=== PATIENT | male | born 1995 | race Caucasian/White ===

== ENCOUNTER 2024-09-12 13:34 | Emergency (ER) | payer OTHER, SELFPAY ==
--- OUTSIDE RECORDS SUMMARY | 2024-09-12 13:37 | XMS_ITS | Clinical Summary ---
Author Organization [facility] Address [place], [place] [address] Care Team Providers Care Watcher [employer] Name Role Phone Luke Nayak MD Primary Care Provider Irene Mayer RN Unavailable [phone] Allergies No known active allergies Medications blood-glucose meterIndications: Diabetes mellitus type 2, uncontrolled, without complications Dispense meter, test strips, lancets covered by pt ins. E11.9 NIDDM type II - Test 2 times/day. Reason: High A1C 1 Device 03/24/20 19 Active blood sugar diagnostic (BLOOD GLUCOSE TEST) stripIndications: Diabetes mellitus type 2, uncontrolled, without complications As directed. Test 2 times per day. 200 Strip 3 03/24/20 19 Active metFORMIN (GLUCOPHAGE) 1,000 mg tabletIndications :Controlled type 2 diabetes mellitus without complication, without long-term current use of insulin (HC) Take 1 Tablet (1,000 mg) by mouth two times daily with meals. 180 Tablet 1 06/16/20 24 Active tirzepatide (Mounjaro) 7.5 mg/0.5 mL penIndications:Un controlled type 2 diabetes mellitus with hypoglycemia without coma (HC) Inject 7.5 mg subcutaneous once weekly. 2 mL 06/16/20 24 Active pen tirzepatide (Mounjaro) 10 mg/0.5 mL penIndications:Un controlled type 2 diabetes mellitus with hypoglycemia without coma (HC) Inject 10 mg subcutaneous once weekly. 2 mL 06/16/20 24 Active tirzepatide (Mounjaro) 12.5 mg/0.5 mL penIndications:Un controlled type 2 diabetes mellitus with hypoglycemia without coma (HC) Inject 12.5 mg subcutaneous once weekly. 2 mL 06/16/20 24 Active tirzepatide (Mounjaro) 15 mg/0.5 mL penIndications:Un controlled type 2 diabetes mellitus with hypoglycemia without coma (HC) Inject 15 mg subcutaneous once weekly. 2 mL 06/16/20 24 Active ezetimibe (ZETIA) 10 mg tabletIndications :Hyperlipidemia, unspecified hyperlipidemia type Take 1 Tablet (10 mg) by mouth once daily. 90 Tablet 3 06/17/20 24 Active pen needle (BD Ultra-Fine Micro Pen Needle) 32 gauge x 1/4 (disposable insulin pen needle)Indication s:Uncontrolled type 2 diabetes mellitus with hypoglycemia without coma (HC) Remove the 2 covers on the pen needle before administering medication dose. 100 Each 5 06/27/20 24 Active omeprazole 20 mg tabletIndications :Chronic GERD Take 1 Tablet (20 mg) by mouth once daily before a meal. 90 Tablet 1 07/11/20 24 Active tirzepatide (Mounjaro) 5 mg/0.5 mL penIndications:Un controlled type 2 diabetes mellitus with hypoglycemia without coma (HC) Inject 5 mg subcutaneous once weekly. 2 mL 06/16/20 24 024 Discontin ued(*Medi cation adjustmen t) Active Problems Problem Noted Date Diagnosed Date Elevated liver enzymes 07/11/2024 Hyperlipidemia 01/18/2021 Controlled type 2 diabetes m ellitus without complication, without long-term current use of insulin 12/26/2019 Anxiety state, unspecified 06/06/2013 Obesity, unspecified 05/01/2008 Resolved Problems Problem Noted Date Diagnosed Date Resolved Date Type 2 diabetes mellitus wit h hyperglycemia, without long-term current use of insulin 02/02/2022 02/02/2022 Diabetes mellitus type 2, un controlled, without complications 03/24/2019 12/26/2019 Hypertriglyceridemia 03/24/2019 021 Insulin resistance 04/29/2010 9 Overview (04/29/2010): elevated insulin level Encounters Date Type Department Care Team Description 09/10/2024 Travel 08/15/2024 1:15 PM [employer]ORTING [employer] SALES ASSOCIATE Office Visit [facility] [address] [place] [address] Luke Nayak MD Follow Up 08/14/2024 3:00 PM [employer]ING [employer] SALES ASSOCIATE Patient Outreach [address] [address] Irene Mayer phys ther (Mounjaro/diet follow-up) 08/14/2024 Travel 08/10/2024 Travel 07/28/2024 Orders Only [facility] Scanner 1 scan: (1-Ord) [facility], DIABETES EYE EXAM CONSULT FORM, 07/28/2024 07/11/2024 2:55 PM CDT Office Visit [facility] [address] [place] [address] Luke Nayak MD Follow Up 07/10/2024 3:00 PM CDT Patient Outreach [address] [address] Irene Mayer RN Diabetes (Assessment/medicati on management) 07/10/2024 Travel 07/06/2024 Travel 06/27/2024 2:55 PM CDT Office Visit [facility] [address] [place] [address] Luke Nayak MD Diabetes (Discuss insulin use- and what blood sugars are too low with insulin. ); Medication Management (Ezetimibe or Mounjaro - was giving an upset stomach - but has gotten better ) 06/26/2024 Travel 06/17/2024 Telephone [facility] [address] [place] [address] Luke Nayak MD Results 06/16/2024 2:55 PM CDT Office Visit [facility] [address] [place] [address] Luke Nayak MD Diabetes (6 month follow up) 06/16/2024 Travel from Last 3 Months Immunizations Name Administration Dates Next Due AMB Influenza, IIV3 (Age >=3 years)(Flu Clinic Only) 08/30/2009 COVID-19 VACCINE SPIKEVAX (M ODERNA 50MCG/0.5ML) 12YO+ PFS 06/27/2024,11/30/2023 COVID-19 vaccine (Fast Orientation-Bio NTech 30mcg/0.3mL) 12YO+ BIVALENT PF, MDV 08/02/2022 COVID-19 vaccine (Pfizer-Bio NTech 30mcg/0.3mL) 12YO+ PILI-SUCROSE PF, MDV 11/24/2021 COVID-19 vaccine (Pfizer-Bio NTech 30mcg/0.3mL) PF, MDV 12/31/2020,12/11/2020 DTaP 10/07/2000,05/20/1998 DTaP-HIB (TriHIBIT) 01/26/1997,1996,1996 HIB HbOC (HibTITER) 05/20/1998 HPV 9 (Gardasil 9) 01/18/2021 Hepatitis A (Peds) 03/22/2000,11/30/1998 Hepatitis B (Peds) 01/26/1997,1996, 996 Human Papilloma Virus Vaccine 05/02/2013, 012 INFLUENZA, IIV3 PF (AGE >= 6 MO) 06/27/2024 Inactivated Polio Vaccine 10/07/2000,,1996,09/30 Influenza, IIV3 (Age 6-35 mos) 08/30/2009 Influenza, IIV3 (Age >=3 years) 10/07/2000 Influenza, IIV4 08/02/2022,06/25/2019 MMR 10/07/2000,08/18/1997 Meningococcal Vaccine (Menactra) 05/01/2008 Pneumococcal Conj 20-valent (Prevnar 20) 11/30/2023 Pneumococcal Poly,23-Valent (Pneumovax) 04/07/2019 Pneumococcal conj 7-Valent (Prevnar 7) 2 Tdap 03/19/2019,05/01/2008 Varicella Vaccine 05/01/2008,08/18/1997 Family History Medical History Relation Name Comments Good Health Father Other Mother of covid 2 020. Diabetes Paternal Aunt Cancer-colon No Family History Cancer-prostate No Family History Heart attack No Family History Relation Name Status Comments Father Mother Paternal Aunt Social History Tobacco Use Types Packs/Day Years Used Date Smoking Tobacco: Never Smokeless Tobacco: Never Tobacco Cessation:Counseling Given: No Alcohol Use Standard Drinks/Week Comments No 0 (1 standard drink = 0.6 oz pur e alcohol) [facility] Utilities Answer Date Recorded Do you have trouble paying f or utilities (for example, heat, electricity, water, phone)? No 11/30/2023 PHQ-2 Answer Date Recorded PHQ-2 TOTAL SCORE 1 11/30/2023 Social Connections Answer Date Recorded Do you often feel lonely or isolated from those around you? 0 11/30/2023 Financial Resource Strain Answer Date R ecorded Difficulty of Paying Living Expenses 2 11/30/2023 Difficulty of Paying Living Expenses 1 11/30/2023 Food Insecurity Answer Date Recorded Do you worry your food will run out before you are able to buy more? 2 11/30/2023 Transportation Needs Answer Date Record ed Does lack of transportation keep you from medica l appointments? 1 11/30/2023 Does lack of transportation keep you from work, meetings or getting things that you need? 1 11/30/2023 Housing Stability Answer Date Recorded What is your housing situation today? 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 Gender Identity Not on file Sexual Orientation Not on file Obstetrics History Last Filed Vital Signs Vital Sign Reading Time Taken Comments Blood Pressure 132/75 08/15/2024 1:21 PM SPORTING [employer] SALES ASSOCIATE Pulse 91 08/15/2024 1:08 PM SPORTING [employer] SALES ASSOCIATE Temperature 37 C (98.6 F) 03/09/2021 10:38 AM CDT Respiratory Rate - - Oxygen Saturation 98% 08/15/2024 1:08 PM SPORTING [employer] SALES ASSOCIATE Inhaled Oxygen Concentration - - Weight 132.5 kg (292 lb 3.2 oz) 08/15/2024 1:08 PM SPORTING GOODS SALES ASSOCIATE Height 168.4 cm (5' 6.3) 11/30/2023 2:57 PM CDT Body Mass Index 46.74 11/30/2023 2:57 PM CDT Plan of Treatment Upcoming Encounters Date Type Department Care Team (Late st Contact Info) Description 09/15/2024 2:45 PM SPORTING [employer] SALES ASSOCIATE Orders Only [facility] [place] [address] Lab, [place] 09/19/2024 8:50 AM SPORTING [employer] SALES ASSOCIATE Office Visit [facility] [address] [facility] [address] Luke Nayak MD [address] [place] [address] Health Maintenance Due Date Last Done Comments BMI (ht and wt on same day) for age 18+ 11/29/2024 11/30/2023, 01/30/2023, 08/02/2022, Additional history exists Depression screening for age 12+ 11/30/2024 12/01/2023, 12/01/2023, 11/30/2023, Additional history exists Tetanus booster 03/19/2029 03/19/2019, 05/01/2008 Hepatitis B series for Diabetes Completed 01/26/1997, 1996, 1996 Tdap Completed 03/19/2019, 05/01/2008 HIV for age 15-65 Completed 08/02/2022 Pneumococcal series for age 6-49 Completed 11/30/2023, 04/07/2019, 04/30/2002 COVID-19 vaccine series Completed 06/27/20 24, 11/30/2023, 08/02/2022, Additional history exists Hepatitis C screening for ag e 18-79 Completed 06/27/2024, 05/05/2022 Influenza for age 9-49 Completed , 08/02/2022, 06/25/2019, Additional history exists Procedures Procedure Name Priority Date/Time Associated Diagnosis Comments SCAN-EYE EXAM 07/28/2024 12:00 AM SP[employer]ING [employer] SALES ASSOCIATE AMB CONSULT TO GASTROENTEROLOGY Routine 07/07/2024 7:53 AM CDT Transaminitis ANTI-MITOCHONDRIAL DELMAR Routine 4:05 PM CDT Transaminitis ANTI-SMOOTH MUSCLE DELMAR Routine 4:05 PM CDT Transaminitis CBC WITH AUTO DIFFERENTIAL Routine 06/27/2024 4:05 PM CDT Transaminitis ANTINUCLEAR ANTIBODY BY IFA Routine 06/27/2024 4:05 PM CDT Transaminitis CERULOPLASMIN Routine 06/27/2024 4:05 PM CDT Transaminitis ANTI HCV Routine 06/27/2024 4:05 PM CDT Transaminitis HBSAG (HBS) Routine 06/27/2024 4:05 PM CDT Transaminitis ANTI HBS QUANT AHS Routine 06/27/2024 4: 05 PM CDT Transaminitis HEMOGLOBIN A1C MONITORING (POCT) Routine 06/16/2024 3:26 PM CDT Controlled type 2 diabetes mellitus without complication, without long-term current use of insulin (HC) LIPID PANEL W REFLEX MEASURED LDL Routine 06/16/2024 3:25 PM CDT Controlled type 2 diabetes mellitus without complication, without long-term current use of insulin (HC) HEPATIC FUNCTION PANEL Routine 3:25 PM CDT Elevated liver enzymes ANTI HIV 1/2 Routine 08/02/2022 3:31 PM SP[employer]ING [employer] SALES ASSOCIATE Screening for HIV (human immunodeficiency virus) from Last 3 Months or Most Recently Relevant to Health Maintenance Results * SCAN-EYE EXAM (07/28/2024 12:00 AM SPORTING [employer] SALES ASSOCIATE) us Scanner OTHER Final Result * ANTINUCLEAR ANTIBODY BY IFA (06/27/2024 4:05 PM CDT) ANNA MARIE SCREEN, IFA NEGATIVE NEGATIVE Ques t Ana Cristina- Remy Martin Comment: ANNA MARIE IFA is a first line screen for detecting the presence of up to approximately 150 autoantibodies in various autoimmune diseases. A negative ANNA MARIE IFA result suggests an ANNA MARIE-associated autoimmune disease is not present at this time, but is not definitive. If there is high clinical suspicion for Sjogren's syndrome, testing for anti-SS-A/Ro antibody should be considered. Anti-Saima-1 antibody should be considered for clinically suspected inflammatory myopathies. AC-0: Negative International Consensus on ANNA MARIE Patterns (https://doi.org/10.1515/tvpd-0834-3726) For additional information, please refer to http://WorldHeart.Coolio/faq/RJK591 (This link is being provided for informational/ educational purposes only.) Blood BLOOD SPECIMEN / Unknown 06/27/2024 4:05 PM CDT 06/27/2024 4:06 PM CDT Narrative [facility] - 06/28/2024 4:06 PM CDT FASTING:NO FASTING: NO Luke Nayak MD CHEMISTRY Final Result Performing Organization Address [facility] de Phone Number Financeit [facility] [address] [facility] [place] [address], [facility] [address] [facility] [place] [address] * HBSAG (06/27/2024 4:05 PM CDT) HEPATITIS B SURFACE ANTIGEN NON-REACTI VE NON-REACTI VE [facility] Comment: For additional information, please refer to http://WorldHeart.Voölks/faq/VDT819 (This link is being provided for informational/ educational purposes only.) Blood BLOOD SPECIMEN / Unknown 06/27/2024 4:05 PM CDT 06/27/2024 4:06 PM CDT Narrative [facility] - 06/28/2024 11:52 AM CDT FASTING:NO FASTING: NO Luke Nayak MD SEND OUTS Final Result Performing Organization Address [facility] Co de Phone Number Financeit [facility] [address] [place] [address], [place] [phone] [facility] [address] [facility] [place] [address] * ANTI HCV (06/27/2024 4:05 PM CDT) HEPATITIS C ANTIBODY NON-REACTI VE NON-REACT [place] [facility]Pradeep Vanne Comment: HCV antibody was non-reactive. There is no laboratory evidence of HCV infection. In most cases, no further action is required. However, if recent HCV exposure is suspected, a test for HCV RNA (test code 66129) is suggested. For additional information please refer to http://WorldHeart.Voölks/faq/MYD95i0 (This link is being provided for informational/ educational purposes only.) Blood BLOOD SPECIMEN / Unknown 06/27/2024 4:05 PM CDT 06/27/2024 4:06 PM CDT Narrative [facility] - 06/28/2024 11:52 AM CDT FASTING:NO FASTING: NO Luke Nayak MD SEND OUTS Final Result [facility] [address] [place] [address], [facility] [address] [place] [address] * (ABNORMAL) ANTI HBS QUANT AHS (06/27/2024 4:05 PM CDT) Pathologist [facility] HEPATITIS B SURFACE AB IMMUNITY, QN <5(L) > OR = 10 mIU/mL [facility]Nighat [facility]ne Comment: Patient does not have immunity to hepatitis B virus. For additional information, please refer to http://WorldHeart.Voölks/faq/VSN101 (This link is being provided for informational/ educational purposes only). Blood BLOOD SPECIMEN / Unknown 06/27/2024 4:05 PM CDT 06/27/2024 4:06 PM CDT Narrative [facility] - 06/28/2024 11:01 AM CDT FASTING:NO FASTING: NO Luke Nayak MD SEND OUTS Final Result [facility] [address] [place] [address], [facility] [address] [place] [address] * ANTI-SMOOTH MUSCLE DELMAR (06/27/2024 4:05 PM CDT) ACTIN (SMOOTH MUSCLE) ANTIBODY (IGG) <20 U [facility], Comment: Reference Range: <20 NEGATIVE > OR = 20 POSITIVE Antibodies recognizing actin are the main component of smooth muscle antibodies associated with autoimmune liver disease. Actin antibodies are found in approximately 75% of patients with autoimmune hepatitis (AIH) type 1, approximately 65% of patients with autoimmune cholangitis, approximately 30% of patients with primary biliary cirrhosis, and approximately 2% of healthy people. High values are closely correlated with AIH type 1. Blood BLOOD SPECIMEN / Unknown 06/27/2024 4:05 PM CDT 06/27/2024 4:06 PM CDT Narrative [facility] - 07/03/2024 1:08 AM CDT FASTING:NO FASTING: NO Luke Nayak MD SEND OUTS Final Result Performing Organization Address [facility]/ZIP Co de Phone Number [facility] [address] [place] [address], [facility], [address] [place] [address] * ANTI-MITOCHONDRIAL DELMAR (06/27/2024 4:05 PM CDT) MITOCHONDRIAL AB SCREEN NEGATIVE NEGATIVE [facility] Blood BLOOD SPECIMEN / Unknown 06/27/2024 4:05 PM CDT 06/27/2024 4:06 PM CDT Narrative [facility] - 07/01/2024 9:45 AM CDT FASTING:NO FASTING: NO us Luke Nayak MD SEND OUTS Final Result [facility] [address] [place] [address], [facility] [address] [place] [address] * (ABNORMAL) CBC AND DIFFERENTIAL (06/27/2024 4:05 PM CDT) Pathologist [facility] WHITE BLOOD CELL COUNT 10.9(H) 3.8 - 10.8 Thousand/u L [facility] RED BLOOD CELL COUNT 5.93(H) 4.20 - 5.80 Million/uL [facility] HEMOGLOBIN 16.2 13.2 - 17.1 g/dL [facility] HEMATOCRIT 50.6(H) 38.5 - 50.0 % [facility] MCV 85.3 80.0 - 100.0 fL [facility] MCH 27.3 27.0 - 33.0 pg [facility] MCHC 32.0 32.0 - 36.0 g/dL [facility] Comment: For adults, a slight decrease in the calculated MCHC value (in the range of 30 to 32 g/dL) is most likely not clinically significant; however, it should be interpreted with caution in correlation with other red cell parameters and the patient's clinical condition. RDW 12.5 11.0 - 15.0 % [facility] PLATELET COUNT 344 140 - 400 Thousand/u L [facility] MPV 10.5 7.5 - 12.5 fL [facility] ABSOLUTE NEUTROPHILS 4,643 1,500 - 7,800 cells/uL [facility] ABSOLUTE LYMPHOCYTES 4,752(H) 850 - 3,900 cells/uL [facility] ABSOLUTE MONOCYTES 752 200 - 950 cells/uL [facility] ABSOLUTE EOSINOPHILS 643(H) 15 - 500 cells/uL [facility] ABSOLUTE BASOPHILS 109 0 - 200 cells/uL [facility] NEUTROPHILS 42.6 % [facility] LYMPHOCYTES 43.6 % [facility] MONOCYTES 6.9 % [facility] EOSINOPHILS 5.9 % [facility] BASOPHILS 1.0 % [facility] Blood BLOOD SPECIMEN / Unknown 06/27/2024 4:05 PM CDT 06/27/2024 4:06 PM CDT Narrative [facility] - 06/28/2024 3:25 AM CDT FASTING:NO FASTING: NO us Luke Nayak MD HEMATOLOGY Final Result [facility] [address] [place] [address], [place] [phone] [facility] [address] [place] [address] * CERULOPLASMIN (06/27/2024 4:05 PM CDT) CERULOPLASMIN 29 14 - 30 mg/dL [facility] Blood BLOOD SPECIMEN / Unknown 06/27/2024 4:05 PM CDT 06/27/2024 4:06 PM CDT Narrative [facility] - 06/30/2024 3:51 PM CDT FASTING:NO FASTING: NO us Luke Nayak MD SEND OUTS Final Result [facility] [address] [place] [address], [place] [phone] [facility] [address] [place] [address] * (ABNORMAL) HEMOGLOBIN A1C MONITORING (POCT) (06/16/2024 3:26 PM CDT) POC HEMOGLOBIN A1C 11.5(H) <6.0 % OF TOTAL HGB [facility] Comment: Any point of care results exhibiting inconsistency with the patient's clinical status should be repeated using a different testing method. Blood BLOOD SPECIMEN / Unknown 06/16/2024 3:26 PM CDT 06/16/2024 3:27 PM CDT Luke Nayak MD CHEMISTRY Final Result [facility] [address] [place] [address], [facility] [address] [place] [address] * (ABNORMAL) LIPID PANEL W REFLEX MEASURED LDL (06/16/2024 3:25 PM CDT) CHOLESTEROL, TOTAL 278(H) <200 mg/dL [facility] HDL CHOLESTEROL 36(L) > OR = 40 mg/dL [facility] TRIGLYCERIDES 280(H) <150 mg/dL [facility] Comment: If a non-fasting specimen was collected, consider repeat triglyceride testing on a fasting specimen if clinically indicated. Celine et al. J. of Clin. Lipidol. 2015;9:129-169. LDL-CHOLESTEROL 192(H) mg/dL (calc) [facility] Comment: LDL-C levels > or = 190 mg/dL may indicate familial hypercholesterolemia (FH). Clinical assessment and measurement of blood lipid levels should be considered for all first degree relatives of patients with an FH diagnosis. LDL Cholesterol (LDL-C) levels > or = 300 mg/dL may indicate homozygous familial hypercholesterolemia (HoFH). Untreated, these extremely high LDL-C levels can result in premature CV events and mortality. Patients should be identified early and provided appropriate interventions to reduce the cumulative LDL-C burden from . For questions about testing for familial hypercholesterolemia, please call sendwithus Client Services at [email or web address].GENE.INFO. Celine Nino, et al. J National Lipid Association Recommendations for Patient-Centered Management of Dyslipidemia: Part 1 Journal of Clinical Lipidology 2015;9(2), 129-169. Landon Abbasi et al. (2014). Homozygous familial hypercholesterolaemia: new insights and guidance for clinicians to improve detection and clinical management. Heart Journal, 35(32), 9823-1548. Reference range: <100 Desirable range <100 mg/dL for primary prevention; <70 mg/dL for patients with CHD or diabetic patients with > or = 2 CHD risk factors. LDL-C is now calculated using the Maki calculation, which is a validated novel method providing better accuracy than the Friedewald equation in the estimation of LDL-C. Byron SS et al. JULIUS. 2013;310(19): 5526-4767 (http://education.Coolio/faq/TJO669) CHOL/HDLC RATIO 7.7(H) <5.0 (calc) [facility] NON HDL CHOLESTEROL 242(H) <130 mg/dL (calc) [facility] Comment: Non-HDL level > or = 220 is very high and may indicate genetic familial hypercholesterolemia (FH). Clinical assessment and measurement of blood lipid levels should be considered for all first-degree relatives of patients with an FH diagnosis. For patients with diabetes plus 1 major ASCVD risk factor, treating to a non-HDL-C goal of <100 mg/dL (LDL-C of <70 mg/dL) is considered a therapeutic option. Blood BLOOD SPECIMEN / Unknown 06/16/2024 3:25 PM CDT 06/16/2024 3:26 PM CDT us Luke Nayak MD CHEMISTRY Final Result [facility] [address] [place] [address], [facility] [address] [place] [address] * (ABNORMAL) HEPATIC FUNCTION PANEL (06/16/2024 3:25 PM CDT) PROTEIN, TOTAL 7.2 6.1 - 8.1 g/dL [facility] ALBUMIN 4.2 3.6 - 5.1 g/dL [facility] GLOBULIN 3.0 1.9 - 3.7 g/dL (calc) [facility] ALBUMIN/GLOBULIN RATIO 1.4 1.0 - 2.5 (calc) [facility] BILIRUBIN, TOTAL 0.4 0.2 - 1.2 mg/dL [facility] BILIRUBIN, DIRECT 0.1 < OR = 0.2 mg/dL [facility] BILIRUBIN, INDIRECT 0.3 0.2 - 1.2 mg/dL (calc) [facility] ALKALINE PHOSPHATASE 99 36 - 130 U/L [facility] AST 164(H) 10 - 40 U/L [facility] ALT 316(H) 9 - 46 U/L [facility] Blood BLOOD SPECIMEN / Unknown 06/16/2024 3:25 PM CDT 06/16/2024 3:26 PM CDT us Luke Nayak MD CHEMISTRY Final Result Performing Organization Address City/[facility]/ZIP Co de Phone Number [facility] [address] [place] [address], [place] [phone] [facility] [address] * ANTI HIV 1/2 (08/02/2022 3:31 PM [employer]ING [employer] SALES ASSOCIATE) [facility] HIV-1/HIV-2 ANTIBODY Non-Reacti ve Non-Reacti ve 08/05/2022 1:35 PM [employer]ING [employer] SALES ASSOCIATE [facility] Comment:HIV-1 p24 and HIV-1/ HIV-2 Ab not detected. Blood BLOOD SPECIMEN / Unknown Venipuncture / Unknown 08/02/2022 3:31 PM SP[employer]ING [employer] SALES ASSOCIATE 08/02/2022 3:32 PM [employer]ING [employer] SALES ASSOCIATE us Luke Nayak MD SEND OUTS Final Result [facility] [address] [place] [address], [place] from Last 3 Months or Most Recently Relevant to Health Maintenance Insurance [facility] Care Teams Watcher [employer]s Relationship Specialty Start Date End Date Luke Nayak MD [address] [place] [address] PCP - General Family Practice 12/24/19 Irene Mayer, RN [address] [place] [address] Crystal Grower 08/14/24
[2024-09-12 13:50] VITALS: BP 137/90; PULSE 105; RESP 16; TEMP 36.8; O2SAT 97; BMI 48.1
--- NOTE | 2024-09-12 16:12 | ED.GENADULT ---
HPI - General Adult General Date Seen: 09/12/24 Chief complaint: Abdominal Pain Stated complaint: L side abdominal pain Time Seen by Provider: 09/12/24 15:53 History of Present Illness HPI narrative: Patient is a 29-year-old male with history of diabetes, has been on Sunday RO for the past 4 months he says. For the past day he has noted intermittent warm sensation and his left flank and side. He says it does not feel painful, it seems to come on after eating and it feels kind of warm on the inside and the outside to touch. He has not had problems with nausea, vomiting, diarrhea. No black or bloody stools. Normal appetite. Pain is not exertional nor positional. No pleuritic pain, no shortness of breath. No fevers, no cough or respiratory symptoms. No rash that he has noticed. He does not smoke or drink. Related Data Home Medications ?Medication ?Instructions ?Recorded ?Confirmed ezetimibe 10 mg tablet 10 mg PO DAILY 09/12/24 09/12/24 metformin 1,000 mg tablet 1,000 mg PO BID 09/12/24 09/12/24 tirzepatide 10 mg/0.5 mL 10 mg subcut 09/12/24 subcutaneous pen injector (Mounjaro) Previous Rx's ?Medication ?Instructions ?Recorded omeprazole 40 mg capsule,delayed 40 mg PO DAILY #14 caps 09/12/24 release Allergies Allergy/AdvReac Type Severity Reaction Status Date / Time No Known Drug Allergies Allergy Verified 09/12/24 13:55 Review of Systems Status of ROS: Reports: 10 or more systems reviewed and unremarkable except as noted in History and below [facility] Social History Smoking Status: Never smoker Do you use any of these nicotine containing products: None How often do you have a drink containing alcohol: never AUDIT-C Alcohol total score: 0 Non-prescribed substance use: denies use Exam Narrative: Exam Narrative: Vital signs reviewed In general, alert, nontoxic young man. He is overweight. Head: Normocephalic, atraumatic. Eyes: Sclera clear. Pupils equal and reactive. ENT: Mucous membranes moist. Neck: Supple without adenopathy. Heart: Regular rate and rhythm without murmur. Lungs: Clear. No increased work of breathing, crackles or wheezes. No CVA tenderness. Abdomen: Soft, nontender to palpation. Extremities: Well perfused, pulses intact. No significant edema. Neurologic: Alert, conversant. Speech fluent, face symmetric. Moves all extremities equally. Skin: Warm, dry well perfused. No rash Affect: Normal. Const: Vital Signs, click to edit/add: Vital Signs - 24 hr 09/12/24 13:50 09/12/24 16:27 Temperature 98.2 F 97.5 F L Pulse Rate [Right Pulse Oximeter] 105 H 94 Respiratory Rate 16 18 Blood Pressure [Ri ght Upper Arm] 137/90 H 129/90 H Pulse Oximetry 97 97 Oxygen Delivery Me thod Room Air Room Air Documenting provider has reviewed patient's vital signs: yes Course Course ED Course: Patient presents with somewhat atypical symptoms in his left side. Diagnostic considerations would include angina or a acute coronary syndrome, pneumonia, pancreatitis, diverticulitis, gastritis peptic ulcer disease, shingles, among others. My suspicion for PE is low given absence of chest pain, shortness of breath. He cannot be ruled out by PERC criteria based on tachycardia when he came in, but I do wonder if this might have been based on vital signs taken right after he walked in from outside. Will repeat that and I think if pulses normalized I would not pursue that diagnosis further. I have ordered labs to evaluate for other diagnoses as well as an EKG. This by my review shows a sinus rhythm, ventricular rate of 99. No acute ST segment changes. He does have a rightward axis. Unremarkable T-waves. Labs are generally reassuring. He has a mildly elevated white blood cell count of 13 which is fairly nonspecific in this setting. Platelets are normal, hemoglobin is normal. No left shift. Metabolic panel is normal, creatinine is 0.6, blood sugars well controlled at 95. LFTs are mildly elevated, AST of 54 an ALT of 118, discussed this with him he says he has been told he has fatty liver. I suspect that this is the cause for this but this can be followed with primary care. I do not think that this is related to his current symptoms. CRP is less than 0.6, lipase is 148. Point of care troponin was 0.01. Overall, symptoms are somewhat atypical, but I think it is reasonable to try am on a proton pump inhibitor. He has an appointment with his primary care provider in 1 week which I think would be good follow-up for him. Will see if he feels better on omeprazole. Also told him to keep an eye out for rash which could indicate shingles. Return any time for severe symptoms such as severe uncontrolled pain, vomiting, fevers, significant shortness of breath etcetera. Vital Signs Vital signs: Initial Vital Signs Temperature 98.2 F 09/12/24 13:50 Temperature Source Temporal Artery Scan 09/12/24 13:50 Pulse Rate 105 H 09/12/24 13:50 Pulse Rhythm Regular 09/12/24 13:50 Respiratory Rate 16 09/12/24 13:50 Blood Pressure 137/90 H 09/12/24 13:50 Blood Pressure Mean 105 09/12/24 13:50 Blood Pressure Position Sitting 09/12/24 13:50 Pulse Oximetry 97 09/12/24 13:50 Oxygen Delivery Method Room Air 09/12/24 13:50 Vital Signs Temperature 98.2 F 09/12/24 13:50 Pulse Rate 105 H 09/12/24 13:50 Respiratory Rate 16 09/12/24 13:50 Blood Pressure 137/90 H 09/12/24 13:50 Pulse Oximetry 97 09/12/24 13:50 Oxygen Delivery Method Room Air 09/12/24 13:50 Temperature 97.5 F L 09/12/24 16:27 Pulse Rate 94 09/12/24 16:27 Respiratory Rate 18 09/12/24 16:27 Blood Pressure 129/90 H 09/12/24 16:27 Pulse Oximetry 97 09/12/24 16:27 Oxygen Delivery Method Room Air 09/12/24 16:27 Medical Decision Making Lab Data Labs: Lab Results 09/12/24 09/12/24 09/12/24 Range/Units 16:02 16:29 16:29 WBC 13.05 H (4.50-11.00) K/uL RBC 5.75 (4.30-5.90) m/uL Hgb 16.0 (13.5-17.5) gm/dL Hct 48.1 (37.0-53.0) % MCV 84 (80-100) fL MCH 28 (26-34) pg MCHC 33 (32-36) gm/dL RDW Coeff of Carlos 12.5 (11.5-15.5) % Plt Count 322 (140-440) K/uL Neut % (Auto) 62.5 (42.0-72.0) % Lymph % (Auto) 27.9 (20-44) % Craig % (Auto) 6.4 (0.0-11.0) % Eos % (Auto) 2.5 (0.0-7.0) % Baso % (Auto) 0.6 (0.0-3.0) % Neut # (Auto) 8.20 H (1.7-7.0) K/uL Lymph # (Auto) 3.60 H (0.90-2.90) K/uL Craig # (Auto) 0.80 (0.00-0.90) K/UL Eos # (Auto) 0.30 (0.00-0.50) K/uL Baso # (Auto) 0.10 (0.00-0.30) K/uL Abs Immat Gran (auto) 0.00 (0.00-0.30) K/uL Imm/Tot Granulo (auto) 0.1 % Sodium 137 (135-149) mmol/L Potassium 3.8 (3.6-5.1) mmol/L Chloride 104 (96-114) mmol/L Carbon Dioxide 25 (20-32) mmol/L Anion Gap 8 (7-15) mEq/L BUN 14 (5-24) mg/dL Creatinine 0.6 (0.5-1.5) mg/dL Estimated Creat Clear 159.44 Estimated GFR 135 ml/min Glucose 95 (60-115) mg/dL Calcium 9.0 (8.4-10.6) mg/dL Total Bilirubin 0.4 0.5 (0.1-1.5) mg/dL Direct Bilirubin 0.2 (0.0-0.5) mg/dL AST (12-35) U/L ALT (4-50) U/L Alkaline Phosphatase (40-150) U/L C-Reactive Protein (0.5-1.0) mg/dL Total Protein (6.0-8.3) g/dL Albumin (3.3-5.0) g/dL Lipase (23-300) U/L POC Troponin I 0.01 (0.01-0.04) ng/ml 0109/12/24 09/12/24 Range/Units 16:29 16:29 16:29 WBC (4.50-11.00) K/uL RBC (4.30-5.90) m/uL Hgb (13.5-17.5) gm/dL Hct (37.0-53.0) % MCV (80-100) fL MCH (26-34) pg MCHC (32-36) gm/dL RDW Coeff of Carlos (11.5-15.5) % Plt Count (140-440) K/uL Neut % (Auto) (42.0-72.0) % Lymph % (Auto) (20-44) % Craig % (Auto) (0.0-11.0) % Eos % (Auto) (0.0-7.0) % Baso % (Auto) (0.0-3.0) % Neut # (Auto) (1.7-7.0) K/uL Lymph # (Auto) (0.90-2.90) K/uL Craig # (Auto) (0.00-0.90) K/UL Eos # (Auto) (0.00-0.50) K/uL Baso # (Auto) (0.00-0.30) K/uL Abs Immat Gran (auto) (0.00-0.30) K/uL Imm/Tot Granulo (auto) % Sodium (135-149) mmol/L Potassium (3.6-5.1) mmol/L Chloride (96-114) mmol/L Carbon Dioxide (20-32) mmol/L Anion Gap (7-15) mEq/L BUN (5-24) mg/dL Creatinine (0.5-1.5) mg/dL Estimated Creat Clear Estimated GFR ml/min Glucose (60-115) mg/dL Calcium (8.4-10.6) mg/dL Total Bilirubin (0.1-1.5) mg/dL Direct Bilirubin 0.3 (0.0-0.5) mg/dL AST 52 H 54 H (12-35) U/L ALT 118 H 118 H (4-50) U/L Alkaline Phosphatase 94 (40-150) U/L C-Reactive Protein (0.5-1.0) mg/dL Total Protein (6.0-8.3) g/dL Albumin (3.3-5.0) g/dL Lipase (23-300) U/L POC Troponin I (0.01-0.04) ng/ml 09/12/24 09/12/24 09/12/24 Range/Units 16:29 16:29 16:29 WBC (4.50-11.00) K/uL RBC (4.30-5.90) m/uL Hgb (13.5-17.5) gm/dL Hct (37.0-53.0) % MCV (80-100) fL MCH (26-34) pg MCHC (32-36) gm/dL RDW Coeff of Carlos (11.5-15.5) % Plt Count (140-440) K/uL Neut % (Auto) (42.0-72.0) % Lymph % (Auto) (20-44) % Craig % (Auto) (0.0-11.0) % Eos % (Auto) (0.0-7.0) % Baso % (Auto) (0.0-3.0) % Neut # (Auto) (1.7-7.0) K/uL Lymph # (Auto) (0.90-2.90) K/uL Craig # (Auto) (0.00-0.90) K/UL Eos # (Auto) (0.00-0.50) K/uL Baso # (Auto) (0.00-0.30) K/uL Abs Immat Gran (auto) (0.00-0.30) K/uL Imm/Tot Granulo (auto) % Sodium (135-149) mmol/L Potassium (3.6-5.1) mmol/L Chloride (96-114) mmol/L Carbon Dioxide (20-32) mmol/L Anion Gap (7-15) mEq/L BUN (5-24) mg/dL Creatinine (0.5-1.5) mg/dL Estimated Creat Clear Estimated GFR ml/min Glucose (60-115) mg/dL Calcium (8.4-10.6) mg/dL Total Bilirubin (0.1-1.5) mg/dL Direct Bilirubin (0.0-0.5) mg/dL AST (12-35) U/L ALT (4-50) U/L Alkaline Phosphatase 98 (40-150) U/L C-Reactive Protein 0.6 (0.5-1.0) mg/dL Total Protein 7.6 7.6 (6.0-8.3) g/dL Albumin 4.3 4.3 (3.3-5.0) g/dL Lipase 147 (23-300) U/L POC Troponin I (0.01-0.04) ng/ml 09/12/24 Range/Units 16:29 WBC (4.50-11.00) K/uL RBC (4.30-5.90) m/uL Hgb (13.5-17.5) gm/dL Hct (37.0-53.0) % MCV (80-100) fL MCH (26-34) pg MCHC (32-36) gm/dL RDW Coeff of Carlos (11.5-15.5) % Plt Count (140-440) K/uL Neut % (Auto) (42.0-72.0) % Lymph % (Auto) (20-44) % Craig % (Auto) (0.0-11.0) % Eos % (Auto) (0.0-7.0) % Baso % (Auto) (0.0-3.0) % Neut # (Auto) (1.7-7.0) K/uL Lymph # (Auto) (0.90-2.90) K/uL Craig # (Auto) (0.00-0.90) K/UL Eos # (Auto) (0.00-0.50) K/uL Baso # (Auto) (0.00-0.30) K/uL Abs Immat Gran (auto) (0.00-0.30) K/uL Imm/Tot Granulo (auto) % Sodium (135-149) mmol/L Potassium (3.6-5.1) mmol/L Chloride (96-114) mmol/L Carbon Dioxide (20-32) mmol/L Anion Gap (7-15) mEq/L BUN (5-24) mg/dL Creatinine (0.5-1.5) mg/dL Estimated Creat Clear Estimated GFR ml/min Glucose (60-115) mg/dL Calcium (8.4-10.6) mg/dL Total Bilirubin (0.1-1.5) mg/dL Direct Bilirubin (0.0-0.5) mg/dL AST (12-35) U/L ALT (4-50) U/L Alkaline Phosphatase (40-150) U/L C-Reactive Protein (0.5-1.0) mg/dL Total Protein (6.0-8.3) g/dL Albumin (3.3-5.0) g/dL Lipase 148 (23-300) U/L POC Troponin I (0.01-0.04) ng/ml Discharge Plan Discharge Clinical Impression: Left sided abdominal pain of unknown cause Patient Disposition: Home, Self-Care Condition: Stable Instructions: Abdominal Pain (ED) Additional Instructions: Your test today are reassuring. There is no evidence of problems with your heart, kidneys, pancreas. Your liver function tests are mildly elevated, this may be due to fatty liver, but can be followed through primary care. I do not think this is related to your symptoms today. If you develop a rash on your left side, this could indicate shingles and you should be seen again. For now, I would recommend that we try you on a 2 week course of omeprazole, a medication for stomach acid. You should follow-up in about a week with primary care for recheck of your symptoms. If at any time you have significant worsening, high fevers, difficulty breathing, severe pain, vomiting or other new symptoms, return to the ER for evaluation. Prescriptions: New omeprazole 40 mg capsule,delayed release(DR/EC) 40 mg PO DAILY Qty: 14 2RF No Action metformin 1,000 mg tablet 1,000 mg PO BID ezetimibe 10 mg tablet 10 mg PO DAILY Mounjaro 10 mg/0.5 mL pen injector 10 mg subcut Follow Up/Referrals: Luke Nayak MD [Primary Care Provider] - Stand Alone Forms: Silver [employer]ve Info Instructions
[2024-09-12 16:27] VITALS: BP 129/90; PULSE 94; RESP 18; TEMP 36.4; O2SAT 97
[2024-09-12 16:45] LABS: Basophils Percent Auto 0.6 % (0.0-3.0); Eosinophils Percent Auto 2.5 % (0.0-7.0); Hematocrit 48.1 % (37.0-53.0); Immature Granulocytes Pct Auto 0.1 %; Lymphocytes Percent Auto 27.9 % (20-44); Mean Corpuscular HGB Conc 33 gm/dL (32-36); Mean Corpuscular Hemoglobin 28 pg (26-34); Mean Corpuscular Volume 84 fL (80-100); Monocytes Percent Auto 6.4 % (0.0-11.0); Neutrophils Percent Auto 62.5 % (42.0-72.0); Platelet Count* 322 K/uL (140-440); RDW Coefficient of Variation % 12.5 % (11.5-15.5); Red Blood Count 5.75 m/uL (4.30-5.90); White Blood Count* 13.05 K/uL (4.50-11.00)
[2024-09-12 16:53] LABS: Albumin* 4.3 g/dL (3.3-5.0); Chloride* 104 mmol/L (96-114); Slide Review Reflex No
[2024-09-12 16:54] LABS: Potassium* 3.8 mmol/L (3.6-5.1); Sodium* 137 mmol/L (135-149)
[2024-09-12 16:56] LABS: Creatinine* 0.6 mg/dL (0.5-1.5); Est. Creatinine Clearance* 159.44; Estimated Glomerular Filt Rate 135 ml/min
[2024-09-12 16:57] LABS: Alanine Aminotransferase* 118 U/L (4-50); Alkaline Phosphatase* 94 U/L (40-150); Anion Gap 8 mEq/L (7-15); Aspartate Amino Transferase* 52 U/L (12-35); Bilirubin Direct* 0.2 mg/dL (0.0-0.5); Bilirubin Total* 0.4 mg/dL (0.1-1.5); Blood Urea Nitrogen* 14 mg/dL (5-24); Carbon Dioxide* 25 mmol/L (20-32); Glucose* 95 mg/dL (60-115); Lipase* 147 U/L (23-300); Total Protein* 7.6 g/dL (6.0-8.3)
[2024-09-12 17:00] LABS: C Reactive Protein* 0.6 mg/dL (0.5-1.0)
[2024-09-12 17:00] LABS: Troponin, Point-of-Care* 0.01 ng/ml (0.01-0.04)
[2024-09-12 17:20] LABS: Albumin* 4.3 g/dL (3.3-5.0)
[2024-09-12 17:22] LABS: Bilirubin Direct* 0.3 mg/dL (0.0-0.5); Bilirubin Total* 0.5 mg/dL (0.1-1.5); Total Protein* 7.6 g/dL (6.0-8.3)
[2024-09-12 17:23] LABS: Alanine Aminotransferase* 118 U/L (4-50); Alkaline Phosphatase* 98 U/L (40-150); Aspartate Amino Transferase* 54 U/L (12-35); Lipase* 148 U/L (23-300)
--- OUTSIDE RECORDS SUMMARY | 2024-09-12 18:46 | XMS_ITS | Clinical Summary ---
Author Organization [employer] Address [place], [place] [address] Care Team Providers Care Front End Wheel Loader Operator Name Role Phone Luke Nayak MD Primary Care Provider Irene Mayer RN Unavailable [phone] Allergies No known active allergies Medications blood-glucose [...] Team Description 09/10/2024 Travel 08/15/2024 1:15 PM SECTION HAND HELPER Office Visit [facility] [address] [place] [address] Luke Nayak MD Follow Up 08/14/2024 3:00 PM SECTION HAND HELPER Patient Outreach [address] [address] Irene Mayer rock breaker (Mounjaro/diet follow-up) 08/14/2024 Travel 08/10/2024 Travel 07/28/2024 Orders Only [facility] Scanner 1 scan: (1-Ord) [facility], DIABETES EYE EXAM CONSULT FORM, 07/28/2024 07/11/2024 2:55 PM CDT Office Visit [facility] [address] [place] [address] Luke Nayak MD Follow Up 07/10/2024 3:00 PM CDT Patient Outreach [address] [address] Irene Mayer RN Diabetes (Assessment/medicati on management) 07/10/2024 Travel 07/06/2024 Travel 06/27/2024 2:55 PM CDT Office Visit [facility] [address] [place] [address] Luke Nayak MD Diabetes (Discuss insulin use- and what blood sugars are too low with insulin. ); Medication Management (Ezetimibe or Mounjaro - was giving an upset stomach - but has gotten better ) 06/26/2024 Travel 06/17/2024 Telephone [facility] [address] [place] [address] Luke Nayak MD Results 06/16/2024 2:55 PM CDT Office Visit [facility] [address] [place] [address] Luke Nayak MD Diabetes (6 month follow up) 06/16/2024 Travel from Last 3 Months Immunizations Name Administration Dates Next Due AMB Influenza, IIV3 (Age >=3 years)(Flu Clinic Only) 08/30/2009 COVID-19 VACCINE SPIKEVAX (M ODERNA 50MCG/0.5ML) 12YO+ PFS 06/27/2024,11/30/2023 COVID-19 vaccine (Social Touch-Bio NTech 30mcg/0.3mL) 12YO+ BIVALENT PF, MDV 08/02/2022 [...] drink = 0.6 oz pur e alcohol) [facility] Utilities Answer Date Recorded Do you have [...] on file Legal Sex Male 7:14 AM SECTION HAND HELPER Gender Identity Not on file Sexual Orientation Not on file Obstetrics History Last Filed Vital Signs Vital Sign Reading Time Taken Comments Blood Pressure 132/75 08/15/2024 1:21 PM SECTION HAND HELPER Pulse 91 08/15/2024 1:08 PM SECTION HAND HELPER Temperature 37 C (98.6 F) 03/09/2021 10:38 AM CDT Respiratory Rate - - Oxygen Saturation 98% 08/15/2024 1:08 PM SECTION HAND HELPER Inhaled Oxygen Concentration - - Weight 132.5 kg (292 lb 3.2 oz) 08/15/2024 1:08 PM SECTION HAND HELPER Height 168.4 cm (5' 6.3) 11/30/2023 2:57 PM CDT Body Mass Index 46.74 11/30/2023 2:57 PM CDT Plan of Treatment Upcoming Encounters Date Type Department Care Team (Late st Contact Info) Description 09/15/2024 2:45 PM SECTION HAND HELPER Orders Only [facility] [place] [address] Lab, [place] 09/19/2024 8:50 AM SECTION HAND HELPER Office Visit [facility] [address] [facility] [address] Luke Nayak MD [address] [place] [address] Health Maintenance Due Date Last Done Comments [...] Diagnosis Comments SCAN-EYE EXAM 07/28/2024 12:00 AM SECTION HAND HELPER AMB CONSULT TO GASTROENTEROLOGY Routine 07/07/2024 7:53 [...] ANTI HIV 1/2 Routine 08/02/2022 3:31 PM SECTION HAND HELPER Screening for HIV (human immunodeficiency virus) from Last 3 Months or Most Recently Relevant to Health Maintenance Results * SCAN-EYE EXAM (07/28/2024 12:00 AM SECTION HAND HELPER) us Scanner OTHER Final Result * ANTINUCLEAR [...] Negative International Consensus on ANNA MARIE Patterns (https://doi.org/10.1515/pijf-6546-9604) For additional information, please refer to http://[employer]/faq/QRK191 (This link is being provided for informational/ educational purposes only.) Blood BLOOD SPECIMEN / Unknown 06/27/2024 4:05 PM CDT 06/27/2024 4:06 PM CDT Narrative [facility] - 06/28/2024 4:06 PM CDT FASTING:NO FASTING: NO Luke Nayak MD CHEMISTRY Final Result Performing Organization Address [facility] de Phone Number [facility] [address] [place] [address], [facility] [address] [facility] [place] [address] * HBSAG (06/27/2024 4:05 PM CDT) HEPATITIS B SURFACE ANTIGEN NON-REACTI VE NON-REACTI VE [facility] Comment: For additional information, please refer to http://[employer]/faq/NWV380 (This link is being provided for informational/ educational purposes only.) Blood BLOOD SPECIMEN / Unknown 06/27/2024 4:05 PM CDT 06/27/2024 4:06 PM CDT Narrative [facility] - 06/28/2024 11:52 AM CDT FASTING:NO FASTING: NO Luke Nayak MD SEND OUTS Final Result Performing Organization Address [facility] [[email or web address]] Co de Phone Number [facility] [address] [employer] [place] [address], [place] [phone] [facility] [address] [facility] [place] [address] * ANTI HCV (06/27/2024 4:05 PM CDT) HEPATITIS C ANTIBODY NON-REACTI VE NON-REACT [place] [facility] Comment: HCV antibody was non-reactive. There is no laboratory evidence of HCV infection. In most cases, no further action is required. However, if recent HCV exposure is suspected, a test for HCV RNA (test code 76718) is suggested. For additional information please refer to http://[employer] Education.[facility]/faq/EDZ17v5 (This link is being provided for informational/ educational purposes only.) Blood BLOOD SPECIMEN / Unknown 06/27/2024 4:05 PM CDT 06/27/2024 4:06 PM CDT Narrative [facility] - 06/28/2024 11:52 AM CDT FASTING:NO FASTING: NO Luke Nayak MD SEND OUTS Final Result [facility] [address] [place] [address], [facility] [address] [place] [address] * (ABNORMAL) ANTI HBS QUANT AHS (06/27/2024 4:05 PM CDT) Pathologist [facility] HEPATITIS B SURFACE AB IMMUNITY, QN <5(L) > OR = 10 mIU/mL [facility] Comment: Patient does not have immunity to hepatitis B virus. For additional information, please refer to http://[employer] Education.[facility]/faq/FGR362 (This link is being provided for informational/ educational purposes only). Blood BLOOD SPECIMEN / Unknown 06/27/2024 4:05 PM CDT 06/27/2024 4:06 PM CDT Narrative [facility] - 06/28/2024 11:01 AM CDT FASTING:NO FASTING: NO Luke Nayak MD SEND OUTS Final Result [facility] [address] [place] [address], [facility] [address] [place] [address] * ANTI-SMOOTH MUSCLE DELMAR (06/27/2024 4:05 PM CDT) ACTIN (SMOOTH MUSCLE) ANTIBODY (IGG) <20 U [facility], Comment: Reference Range: <20 NEGATIVE > [...] 06/27/2024 4:06 PM CDT Narrative [facility] - 07/03/2024 1:08 AM CDT FASTING:NO FASTING: NO Luke Nayak MD SEND OUTS Final Result Performing Organization Address [facility]/ZIP Co de Phone Number [facility] [address] [place] [address], [facility], [address] [place] [address] * ANTI-MITOCHONDRIAL DELMAR (06/27/2024 4:05 PM CDT) MITOCHONDRIAL AB SCREEN NEGATIVE NEGATIVE [facility] Blood BLOOD SPECIMEN / Unknown 06/27/2024 4:05 PM CDT 06/27/2024 4:06 PM CDT Narrative [facility] - 07/01/2024 9:45 AM CDT FASTING:NO FASTING: NO us Luke Nayak MD SEND OUTS Final Result [facility] [address] [place] [address], [facility] [address] [place] [address] * (ABNORMAL) CBC AND DIFFERENTIAL (06/27/2024 4:05 PM CDT) Pathologist [facility] WHITE BLOOD CELL COUNT 10.9(H) 3.8 - [...] us Luke Nayak MD HEMATOLOGY Final Result [facility] [address] [place] [address], [place] [phone] [facility] [address] [place] [address] * CERULOPLASMIN (06/27/2024 4:05 PM CDT) CERULOPLASMIN 29 14 - 30 mg/dL [facility] Blood BLOOD SPECIMEN / Unknown 06/27/2024 4:05 PM CDT 06/27/2024 4:06 PM CDT Narrative [facility] - 06/30/2024 3:51 PM CDT FASTING:NO FASTING: NO us Luke Nayak MD SEND OUTS Final Result [facility] [address] [place] [address], [place] [phone] [facility] [address] [place] [address] * (ABNORMAL) HEMOGLOBIN A1C MONITORING (POCT) (06/16/2024 3:26 PM CDT) POC HEMOGLOBIN A1C 11.5(H) <6.0 % OF TOTAL HGB [facility] Comment: Any point of care results exhibiting inconsistency with the patient's clinical status should be repeated using a different testing method. Blood BLOOD SPECIMEN / Unknown 06/16/2024 3:26 PM CDT 06/16/2024 3:27 PM CDT Luke Naayk MD CHEMISTRY Final Result [facility] [address] [place] [address], [facility] [address] [place] [address] * (ABNORMAL) LIPID PANEL W REFLEX MEASURED LDL (06/16/2024 3:25 PM CDT) CHOLESTEROL, TOTAL 278(H) <200 mg/dL [facility] HDL CHOLESTEROL 36(L) > OR = 40 mg/dL [facility] TRIGLYCERIDES 280(H) <150 mg/dL [facility] Comment: If a non-fasting specimen was collected, consider repeat triglyceride testing on a fasting specimen if clinically indicated. Celine et al. J. of Clin. Lipidol. 2015;9:129-169. LDL-CHOLESTEROL 192(H) mg/dL (calc) [facility] Comment: LDL-C levels > or = 190 [...] about testing for familial hypercholesterolemia, please call [facility] Client Services at [phone]. Celine Nino, et al. J National Lipid Association Recommendations for Patient-Centered Management of Dyslipidemia: Part 1 Journal of Clinical Lipidology 2015;9(2), 129-169. Landon Abbasi et al. (2014). Homozygous familial hypercholesterolaemia: new insights and guidance for clinicians to improve detection and clinical management. Heart Journal, 35(32), 5173-7562. Reference range: <100 Desirable range <100 mg/dL for primary prevention; <70 mg/dL for patients with CHD or diabetic patients with > or = 2 CHD risk factors. LDL-C is now calculated using the Maki calculation, which is a validated novel method providing better accuracy than the Friedewald equation in the estimation of LDL-C. Byron SS et al. JULIUS. 2013;310(19): 6434-8562 (http://education.Black Duck Software/faq/WMF875) CHOL/HDLC RATIO 7.7(H) <5.0 (calc) [facility] NON HDL CHOLESTEROL 242(H) <130 mg/dL (calc) [facility] Comment: Non-HDL level > or = 220 [...] us Luke Nayak MD CHEMISTRY Final Result [facility] [address] [place] [address], [facility] [address] [place] [address] * (ABNORMAL) HEPATIC FUNCTION PANEL (06/16/2024 3:25 PM CDT) PROTEIN, TOTAL 7.2 6.1 - 8.1 g/dL [facility] ALBUMIN 4.2 3.6 - 5.1 g/dL [facility] GLOBULIN 3.0 1.9 - 3.7 g/dL (calc) [facility] ALBUMIN/GLOBULIN RATIO 1.4 1.0 - [...] MD CHEMISTRY Final Result Performing Organization Address City/[facility]/ZIP Co de Phone Number [facility] [address] [place] [address], [place] [phone] [facility] [address] * ANTI HIV 1/2 (08/02/2022 3:31 PM SECTION HAND HELPER) [facility] HIV-1/HIV-2 ANTIBODY Non-Reacti ve Non-Reacti ve 08/05/2022 1:35 PM SECTION HAND HELPER [facility] [employer] [facility] Comment:HIV-1 p24 and HIV-1/ HIV-2 Ab not detected. Blood BLOOD SPECIMEN / Unknown Venipuncture / Unknown 08/02/2022 3:31 PM SECTION HAND HELPER 08/02/2022 3:32 PM SECTION HAND HELPER us Luke Nayak MD SEND OUTS Final Result [facility] [address] [place] [address], [place] from Last 3 Months or Most Recently Relevant to Health Maintenance Insurance [facility] Care Teams Front End Wheel Loader Operator Relationship Specialty Start Date End Date Luke Nayak MD [address] [place] [address] PCP - General Family Practice 12/24/19 Irene Mayer, RN [address] [place] [address] Manager Life 08/14/24
== END 2024-09-12 18:16 | disposition home or self-care (01) ==
PROVIDERS: Emergency Provider Emergency Medicine; PCP Family Medicine
DX: R10.9 Unspecified abdominal pain (principal)
CPT/HCPCS: 36415; 80048; 80076; 83690; 84484; 85025; 86140; 93005; 99283; 99284